=== PATIENT | female | born 1955 | race Caucasian/White ===

== ENCOUNTER 2024-01-09 15:07 | Emergency (ER) | payer MEDICARE, BC, SELFPAY ==
[2024-01-09] VITALS (21 sets, daily range): BP systolic 147–168; BP diastolic 70–91; PULSE 69–92; RESP 18; TEMP 37.1; O2SAT 95–99; BMI 32.9
--- NOTE | 2024-01-09 15:38 | XR_ITS ---
Patient: VIRGILIO ENGEL Facility:?[facility] RIS Patient ID:?[id number] Site Patient ID:?[id number]. Site :?[id number] Study:?XRay-Chest PORTABLE 1V-01/09/2024 3:52:36 PM Ordering Physician:FINA Final Report: INDICATION: Chest pain. Short of breath. TECHNIQUE: Chest 1 portable sitting view. COMPARISON: None. FINDINGS: No pneumothorax or pleural effusion. Lungs are clear. Cardiac and mediastinal contours are within normal limits. Upper abdomen and osseous structures as imaged show no acute abnormality. IMPRESSION: No evidence of acute cardiopulmonary disease. Dictated by Andrew Fischer MD @ 01/09/2024 4:27:36 PM Signed by:?Andrew Fischer MD @01/09/2024 4:27:36 PM (Electronic Signature)
--- NOTE | 2024-01-09 15:43 | ED.GENADULT ---
[facility] - General Adult General Date Seen: 01/09/24 Chief complaint: Chest Pain Stated complaint: Chest pain, short of breath Time Seen by Provider: 01/09/24 15:18 Source: patient, RN notes reviewed and old records reviewed Mode of arrival: ambulatory Limitations: no limitations History of Present Illness HPI narrative: Patient is a 68-year-old here with her for evaluation of near syncope associated with mild chest pressure. She says that she has had 3 episodes of feeling faint in the past day and half, these have been very brief, she estimates about 5 seconds, but significant enough that she has felt a she has had to grab onto something because she thought she might pass out. She has not actually fainted. She has had other episodes of lightheadedness which have been even shorter and less severe. She also notes over the past couple of months she has been having some mild chest pressure, no real pattern to that, she has not seen anybody for it. She says she has an upcoming appointment with her primary care doctor for an annual visit says she was just waiting until then. She says she was awakened with chest pressure overnight last night, she went and slept in the recliner, felt better went back to bed. This morning, she says she was helping a friend walter rutledge when she had another episode of this near syncope. She did note some very mild chest discomfort at that time as well. It is now resolved. She denies shortness of breath, nausea, vomiting, diarrhea, black or bloody stools. She has not had fevers or other upper respiratory symptoms. She denies unexpected weight loss or night sweats. She does note that she has felt fatigued for the past couple of months. She just feels like something is ?off?. She has a history of ?arrhythmia, she is unsure exactly what arrhythmia but she takes metoprolol. She has high blood pressure, high cholesterol. She does not smoke. She drinks occasionally. Her father side of the family had problems with heart failure but no early coronary artery disease. Mom of an aneurysm. She says that she did do a stress test a couple of years ago but it was stopped because of this arrhythmia. She wore a monitor for a couple of weeks, did not have an angiogram. No known history of coronary artery disease, mi, stents. She has had several colonoscopies which were unremarkable. Had a negative Cologuard a couple of months ago. Related Data Home Medications Medication Instructions Recorded Confirmed atorvastatin 20 mg tablet 20 mg PO DAILY 01/09/24 01/09/24 losartan 50 mg tablet 50 mg PO DAILY 01/09/24 01/09/24 metoprolol succinate 25 mg 25 mg PO DAILY 01/09/24 01/09/24 tablet,extended release 24 hr Allergies Allergy/AdvReac Type Severity Reaction Status Date / Time Sulfa (Sulfonamide Allergy Intermediate Verified 01/09/24 17:16 Antibiotics) Review of Systems Status of ROS: Reports: 10 or more systems reviewed and unremarkable except as noted in History and below [facility] Social History Smoking Status: Never smoker Do you use any of these nicotine containing products: None Second hand tobacco smoke exposure: No How often do you have a drink containing alcohol: monthly or less How many standard drinks containing alcohol do you have on a typical day: 1 or 2 How often do you have six or more drinks on one occasion: Never AUDIT-C Alcohol total score: 1 Non-prescribed substance use: denies use service: No Exam Narrative: Exam Narrative: Vital signs as noted above. In general, an alert, well-appearing patient. Head: Normocephalic, atraumatic. Eyes: Pupils are equal reactive. Extraocular movements are full. Conjunctivae are normal. ENT: Mucous membranes are moist. Throat is normal. Neck: Supple without lymphadenopathy. Heart: Regular rate and rhythm. No murmur or rub. Lungs: Clear bilaterally. No increased work of breathing, crackles or wheezes. Abdomen: Soft and nontender. No organomegaly. Extremities: Well perfused. No edema. No calf tenderness. Pulses intact. Neurologic: Patient is alert and oriented to person and place. Speech is fluent. Face is symmetric. Moves all extremities equally. Affect: Tearful, anxious. Skin: Warm and dry. Well perfused. Const: Vital Signs, click to edit/add: Vital Signs - 24 hr 01/09/24 15:20 01/09/24 15:21 01/09/24 15:22 Temperature Pulse Rate 84 87 84 Pulse Rate [Pulse Oximeter] Respiratory Rate Blood Pressure 163/87 H 168/78 H Blood Pressure [Ri ght Upper Arm] Pulse Oximetry 96 96 96 Oxygen Delivery Me thod 01/09/24 15:24 01/09/24 15:30 01/09/24 15:42 Temperature 98.8 F Pulse Rate 79 87 Pulse Rate [Pulse Oximeter] 92 Respiratory Rate 18 Blood Pressure 148/89 H Blood Pressure [Ri ght Upper Arm] 163/87 H Pulse Oximetry 95 97 96 Oxygen Delivery Me thod Room Air 01/09/24 16:00 01/09/24 16:02 01/09/24 16:22 Temperature Pulse Rate 75 79 77 Pulse Rate [Pulse Oximeter] Respiratory Rate Blood Pressure 150/77 H 147/72 H Blood Pressure [Ri ght Upper Arm] Pulse Oximetry 96 97 96 Oxygen Delivery Me thod 01/09/24 16:23 Temperature Pulse Rate Pulse Rate [Pulse Oximeter] Respiratory Rate Blood Pressure Blood Pressure [Ri ght Upper Arm] Pulse Oximetry 97 Oxygen Delivery Me thod Documenting provider has reviewed patient's vital signs: yes Course Course ED Course: Diagnostic considerations are broad at this time and include coronary artery disease/acute coronary syndrome, pulmonary embolism, pneumonia, other infection, metabolic derangement, among others. EKG done on arrival shows a normal sinus rhythm, ventricular rate of 90 beats per minute. No acute ST segment changes. Unremarkable T-waves. Labs and chest x-ray are pending. Chest x-ray by my review is negative, final radiology read is negative. Labs notable for normal white blood cell count of 7.9, hemoglobin of 13.4. D-dimer mildly elevated for age at 0.82, metabolic panel normal, creatinine 0.7, LFTs normal, CRP less than 0.5. BNP is 849, indeterminate. TSH is normal at 1.37 and initial point of care troponin was 0.02, repeat was 0.0202 hours. I did elect to do a CT scan of the chest given her mildly elevated D-dimer and symptoms over the past couple of months. By my review, there was no evidence of pulmonary embolism. Read as follows by Radiology:FINDINGS: Heart and vasculature: Contrast opacification of the pulmonary arterial tree is adequate. No sign of pulmonary embolism. Heart size is normal. Coronary artery calcifications. Thoracic aorta and pulmonary artery are normal in caliber. Lungs and pleura: No suspicious nodules or infiltrates. Scattered atelectasis. No pleural effusions, pleural thickening, or pneumothorax. Lymph nodes/mediastinum: No mediastinal, hilar, or axillary adenopathy. Chest wall: No masses. Upper abdomen: No acute or significant findings. Bones: Unremarkable for age. IMPRESSION: No pulmonary embolism. No focal consolidations. Coronary artery calcifications. T Patient feels well at this time, does not currently have chest pain. I have discussed with her that her evaluation today helps to rule out heart attack, but does not answer the question of whether not she may have coronary artery disease. To that end, I have recommended an outpatient stress test. Results should be sent to Dr. Deanna Thompson at [facility], patient should follow-up with her after her stress test to over results. Reviewed reasons to return such as severe or persistent pain, shortness of breath, vomiting, fainting, etcetera. Vital Signs Vital signs: Initial Vital Signs Pulse Rate 84 01/09/24 15:20 Blood Pressure 163/87 H 01/09/24 15:20 Blood Pressure Mean 112 H 01/09/24 15:20 Pulse Oximetry 96 01/09/24 15:20 Vital Signs Pulse Rate 84 01/09/24 15:20 Blood Pressure 163/87 H 01/09/24 15:20 Pulse Oximetry 96 01/09/24 15:20 Temperature 98.8 F 01/09/24 15:24 Pulse Rate 77 01/09/24 16:22 Respiratory Rate 18 01/09/24 15:24 Blood Pressure 147/72 H 01/09/24 16:22 Pulse Oximetry 97 01/09/24 16:23 Oxygen Delivery Method Room Air 01/09/24 15:24 Medical Decision Making Lab Data Labs: Lab Results 01/09/24 01/09/24 01/09/24 Range/Units 15:39 15:50 15:50 WBC 7.88 (4.50-11.00) K/uL RBC 4.49 (4.00-5.20) m/uL Hgb 13.4 (12.0-16.0) gm/dL Hct 40.2 (33.0-51.0) % MCV 90 (80-100) fL MCH 30 (26-34) pg MCHC 33 (32-36) gm/dL RDW Coeff of Jaqui 13.4 (11.5-15.5) % Plt Count 240 (140-440) K/uL Neut % (Auto) 74.1 H (42.0-72.0) % Lymph % (Auto) 17.4 L (20-44) % [place] % (Auto) 7.7 (0.0-11.0) % Eos % (Auto) 0.4 (0.0-7.0) % Baso % (Auto) 0.4 (0.0-3.0) % Neut # (Auto) 5.80 (1.7-7.0) K/uL Lymph # (Auto) 1.40 (0.90-2.90) K/uL [place] # (Auto) 0.60 (0.00-0.90) K/UL Eos # (Auto) 0.03 (0.00-0.50) K/uL Baso # (Auto) 0.03 (0.00-0.30) K/uL Abs Immat Gran (auto) 0.00 (0.00-0.30) K/uL Imm/Tot Granulo (auto) 0.0 % D-Dimer Quant (PE/DVT) 0.82 H (0.00-0.50) ug/ml Sodium 140 (135-149) mmol/L Potassium 4.0 (3.6-5.1) mmol/L Chloride 107 (96-114) mmol/L Carbon Dioxide 23 (20-32) mmol/L Anion Gap 10 (7-15) mEq/L BUN 21 (7-30) mg/dL Creatinine 0.7 (0.5-1.5) mg/dL Estimated Creat Clear 50.91 Estimated GFR 93 ml/min Glucose 89 (60-115) mg/dL Calcium 8.8 (8.4-10.6) mg/dL Total Bilirubin 0.9 Cancelled (0.1-1.5) mg/dL Direct Bilirubin 0.1 (0.0-0.5) mg/dL AST (12-35) U/L ALT (4-35) U/L Alkaline Phosphatase (40-150) U/L C-Reactive Protein (0.5-1.0) mg/dL NT-Pro-B Natriuret Pep pg/mL Total Protein (6.0-8.3) g/dL Albumin (3.3-5.0) g/dL TSH (0.270-4.200) uIU/mL POC Troponin I 0.02 (0.01-0.04) ng/ml 01/09/24 01/09/24 01/09/24 Range/Units 15:50 15:50 15:50 WBC (4.50-11.00) K/uL RBC (4.00-5.20) m/uL Hgb (12.0-16.0) gm/dL Hct (33.0-51.0) % MCV (80-100) fL MCH (26-34) pg MCHC (32-36) gm/dL RDW Coeff of Jaqui (11.5-15.5) % Plt Count (140-440) K/uL Neut % (Auto) (42.0-72.0) % Lymph % (Auto) (20-44) % [place] % (Auto) (0.0-11.0) % Eos % (Auto) (0.0-7.0) % Baso % (Auto) (0.0-3.0) % Neut # (Auto) (1.7-7.0) K/uL Lymph # (Auto) (0.90-2.90) K/uL [place] # (Auto) (0.00-0.90) K/UL Eos # (Auto) (0.00-0.50) K/uL Baso # (Auto) (0.00-0.30) K/uL Abs Immat Gran (auto) (0.00-0.30) K/uL Imm/Tot Granulo (auto) % D-Dimer Quant (PE/DVT) (0.00-0.50) ug/ml Sodium (135-149) mmol/L Potassium (3.6-5.1) mmol/L Chloride (96-114) mmol/L Carbon Dioxide (20-32) mmol/L Anion Gap (7-15) mEq/L BUN (7-30) mg/dL Creatinine (0.5-1.5) mg/dL Estimated Creat Clear Estimated GFR ml/min Glucose (60-115) mg/dL Calcium (8.4-10.6) mg/dL Total Bilirubin (0.1-1.5) mg/dL Direct Bilirubin Cancelled (0.0-0.5) mg/dL AST 25 Cancelled (12-35) U/L ALT 15 Cancelled (4-35) U/L Alkaline Phosphatase 78 (40-150) U/L C-Reactive Protein (0.5-1.0) mg/dL NT-Pro-B Natriuret Pep pg/mL Total Protein (6.0-8.3) g/dL Albumin (3.3-5.0) g/dL TSH (0.270-4.200) uIU/mL POC Troponin I (0.01-0.04) ng/ml 01/09/24 01/09/24 01/09/24 Range/Units 15:50 15:50 15:50 WBC (4.50-11.00) K/uL RBC (4.00-5.20) m/uL Hgb (12.0-16.0) gm/dL Hct (33.0-51.0) % MCV (80-100) fL MCH (26-34) pg MCHC (32-36) gm/dL RDW Coeff of Jaqui (11.5-15.5) % Plt Count (140-440) K/uL Neut % (Auto) (42.0-72.0) % Lymph % (Auto) (20-44) % [place] % (Auto) (0.0-11.0) % Eos % (Auto) (0.0-7.0) % Baso % (Auto) (0.0-3.0) % Neut # (Auto) (1.7-7.0) K/uL Lymph # (Auto) (0.90-2.90) K/uL [place] # (Auto) (0.00-0.90) K/UL Eos # (Auto) (0.00-0.50) K/uL Baso # (Auto) (0.00-0.30) K/uL Abs Immat Gran (auto) (0.00-0.30) K/uL Imm/Tot Granulo (auto) % D-Dimer Quant (PE/DVT) (0.00-0.50) ug/ml Sodium (135-149) mmol/L Potassium (3.6-5.1) mmol/L Chloride (96-114) mmol/L Carbon Dioxide (20-32) mmol/L Anion Gap (7-15) mEq/L BUN (7-30) mg/dL Creatinine (0.5-1.5) mg/dL Estimated Creat Clear Estimated GFR ml/min Glucose (60-115) mg/dL Calcium (8.4-10.6) mg/dL Total Bilirubin (0.1-1.5) mg/dL Direct Bilirubin (0.0-0.5) mg/dL AST (12-35) U/L ALT (4-35) U/L Alkaline Phosphatase Cancelled (40-150) U/L C-Reactive Protein < 0.5 L (0.5-1.0) mg/dL NT-Pro-B Natriuret Pep 849 Cancelled pg/mL Total Protein 7.6 Cancelled (6.0-8.3) g/dL Albumin 4.3 (3.3-5.0) g/dL TSH (0.270-4.200) uIU/mL POC Troponin I (0.01-0.04) ng/ml 01/09/24 01/09/24 01/09/24 Range/Units 15:50 15:50 17:47 WBC (4.50-11.00) K/uL RBC (4.00-5.20) m/uL Hgb (12.0-16.0) gm/dL Hct (33.0-51.0) % MCV (80-100) fL MCH (26-34) pg MCHC (32-36) gm/dL RDW Coeff of Ajqui (11.5-15.5) % Plt Count (140-440) K/uL Neut % (Auto) (42.0-72.0) % Lymph % (Auto) (20-44) % [place] % (Auto) (0.0-11.0) % Eos % (Auto) (0.0-7.0) % Baso % (Auto) (0.0-3.0) % Neut # (Auto) (1.7-7.0) K/uL Lymph # (Auto) (0.90-2.90) K/uL [place] # (Auto) (0.00-0.90) K/UL Eos # (Auto) (0.00-0.50) K/uL Baso # (Auto) (0.00-0.30) K/uL Abs Immat Gran (auto) (0.00-0.30) K/uL Imm/Tot Granulo (auto) % D-Dimer Quant (PE/DVT) (0.00-0.50) ug/ml Sodium (135-149) mmol/L Potassium (3.6-5.1) mmol/L Chloride (96-114) mmol/L Carbon Dioxide (20-32) mmol/L Anion Gap (7-15) mEq/L BUN (7-30) mg/dL Creatinine (0.5-1.5) mg/dL Estimated Creat Clear Estimated GFR ml/min Glucose (60-115) mg/dL Calcium (8.4-10.6) mg/dL Total Bilirubin (0.1-1.5) mg/dL Direct Bilirubin (0.0-0.5) mg/dL AST (12-35) U/L ALT (4-35) U/L Alkaline Phosphatase (40-150) U/L C-Reactive Protein (0.5-1.0) mg/dL NT-Pro-B Natriuret Pep pg/mL Total Protein (6.0-8.3) g/dL Albumin Cancelled (3.3-5.0) g/dL TSH 1.370 Cancelled (0.270-4.200) uIU/mL POC Troponin I 0.02 (0.01-0.04) ng/ml Discharge Plan Discharge Clinical Impression: Chest pain Patient Disposition: Home, Self-Care Condition: Stable Instructions: Chest Pain (DC) Additional Instructions: Someone should call you tomorrow to schedule a stress test in the near future. Please follow-up with Dr. Thompson following your stress test to go over results. If you have worsening symptoms at any time, significant chest pain, particularly if associated with other symptoms such as shortness of breath, nausea vomiting, fainting, or breaking out into a sweat, return to the emergency department. Prescriptions: No Action losartan 50 mg tablet 50 mg PO DAILY atorvastatin 20 mg tablet 20 mg PO DAILY metoprolol succinate 25 mg tablet extended release 24 hr 25 mg PO DAILY Follow Up/Referrals: Deanna Thompson PA-C [Primary Care Provider] - Stand Alone Forms: [employer] Info Instructions
[2024-01-09 16:08] LABS: Troponin, Point-of-Care* 0.02 ng/ml (0.01-0.04)
[2024-01-09 16:12] LABS: Basophils Absolute Auto 0.03 K/uL (0.00-0.30); Basophils Percent Auto 0.4 % (0.0-3.0); Eosinophils Absolute Auto 0.03 K/uL (0.00-0.50); Eosinophils Percent Auto 0.4 % (0.0-7.0); Hematocrit 40.2 % (33.0-51.0); Hemoglobin* 13.4 gm/dL (12.0-16.0); Lymphocytes Percent Auto 17.4 % (20-44); Mean Corpuscular HGB Conc 33 gm/dL (32-36); Mean Corpuscular Hemoglobin 30 pg (26-34); Mean Corpuscular Volume 90 fL (80-100); Monocytes Percent Auto 7.7 % (0.0-11.0); Neutrophils Percent Auto 74.1 % (42.0-72.0); Platelet Count* 240 K/uL (140-440); RDW Coefficient of Variation % 13.4 % (11.5-15.5); Red Blood Count 4.49 m/uL (4.00-5.20); White Blood Count* 7.88 K/uL (4.50-11.00)
[2024-01-09 16:21] LABS: Slide Review Reflex No
[2024-01-09 16:29] LABS: Albumin* 4.3 g/dL (3.3-5.0); Chloride* 107 mmol/L (96-114)
[2024-01-09 16:30] LABS: Sodium* 140 mmol/L (135-149)
[2024-01-09 16:32] LABS: Creatinine* 0.7 mg/dL (0.5-1.5); Est. Creatinine Clearance* 50.91; Estimated Glomerular Filt Rate 93 ml/min
[2024-01-09 16:33] LABS: Alanine Aminotransferase* 15 U/L (4-35); Alkaline Phosphatase* 78 U/L (40-150); Anion Gap 10 mEq/L (7-15); Aspartate Amino Transferase* 25 U/L (12-35); Bilirubin Direct* 0.1 mg/dL (0.0-0.5); Bilirubin Total* 0.9 mg/dL (0.1-1.5); Blood Urea Nitrogen* 21 mg/dL (7-30); Calcium* 8.8 mg/dL (8.4-10.6); Carbon Dioxide* 23 mmol/L (20-32); D Dimer Quantitative* 0.82 ug/ml (0.00-0.50); Glucose* 89 mg/dL (60-115); Total Protein* 7.6 g/dL (6.0-8.3)
[2024-01-09 16:45] LABS: C Reactive Protein* < 0.5 mg/dL (0.5-1.0); NT Pro B Type NatriureticPept* 849 pg/mL
--- NOTE | 2024-01-09 17:00 | CT_ITS ---
Patient: VIRGILIO ENGEL Facility:?[facility] RIS Patient ID:?[id number] Site Patient ID:?[id number]. Site :?[id number] Study:?CT-Chest W/ 95CC ISOVUE 370 PE PROTOCOL-01/09/2024 5:37:21 PM Ordering Physician:FINA Final Report: INDICATION: Chest pain. TECHNIQUE: CT chest PE was acquired with 100 cc Omnipaque 350 IV contrast. COMPARISON: None. FINDINGS: Heart and vasculature: Contrast opacification of the pulmonary arterial tree is adequate. No sign of pulmonary embolism. Heart size is normal. Coronary artery calcifications. Thoracic aorta and pulmonary artery are normal in caliber. Lungs and pleura: No suspicious nodules or infiltrates. Scattered atelectasis. No pleural effusions, pleural thickening, or pneumothorax. Lymph nodes/mediastinum: No mediastinal, hilar, or axillary adenopathy. Chest wall: No masses. Upper abdomen: No acute or significant findings. Bones: Unremarkable for age. IMPRESSION: No pulmonary embolism. No focal consolidations. Coronary artery calcifications. Please note that all CT scans at this facility use dose modulation, iterative reconstruction, and/or weight-based dosing when appropriate to reduce radiation dose to as low as reasonably achievable. Dictated by Wilmer Beckham MD @ 01/09/2024 6:29:44 PM Signed by:?Wilmer Beckham MD @01/09/2024 6:29:44 PM (Electronic Signature)
[2024-01-09 18:11] LABS: Troponin, Point-of-Care* 0.02 ng/ml (0.01-0.04)
== END 2024-01-09 18:57 | disposition home or self-care (01) ==
PROVIDERS: Emergency Provider Emergency Medicine; PCP Physician Assistant
DX: R07.9 Chest pain, unspecified (principal)
CPT/HCPCS: 36415; 71045; 71275; 80048; 80076; 83880; 84443; 84484; 85025; 85379; 86140; 93005; 94761; 99284; 99285; Q9967

== ENCOUNTER 2024-01-11 12:55 | Outpatient (CLI) | payer MEDICARE, BC, SELFPAY ==
--- NOTE | 2024-01-11 13:35 | W.PM.STED ---
Stress Test Note Date Date Seen: 01/11/24 Date of test: 01/11/24 Providers Referring provider: Deanna Rivers Primary care provider: Deanna Thompson Stress test physician: Kim Thomson Stress Test Note Stress test ordered: Stress Echo Indication for test: Chest pain Stress test medicine: None Results discussion: Resting EKG: Sinus rhythm, 77 beats per minute. Low-voltage QRS in V2. Resting blood pressure: 160/83 Stress test: Patient was consented on stress test ordered. She was exercised on the treadmill following standard Jey protocol. Patient was only able to exercise to 3 minutes 4 seconds, requiring to stop due to dyspnea. She achieved 4.6 Mets at this level of exercise. Of note she did reach over her target heart rate, she had a maximum heart rate of 167 beats per minute which was 130% of a calculated target heart rate of 128. She had a rate pressure product of 19,800. Her last blood pressure during exercise was 120/70 but likely reflects in accurate blood pressure she did have occasional PVC but otherwise no arrhythmia. There was some sinus arrhythmia in recovery. There was no definitive ischemia noted. Impression: Subjectively negative for chest pain but significant dyspnea, poor exercise tolerance and objectively negative for ischemia. Follow up suggested: Patient will contact her primary care provider Dr. Thompson through the portal. We discussed letting her provider know that a stress test had been done and to look for the results. Upon further discussion with Dr. Rivers after the patient left, patient had reported to Dr. Rivers that she had not had an angiogram which is different than what the armorer technician found in her [facility] records. She had had a normal angiogram in 2021. Patient did report to me that she had done a 2 week ZIO patch monitor before. It is possible that this may need to be reconsidered. We will have her contact her primary and follow-up. Patient is discharged from here in stable condition.
[2024-01-11 14:49] VITALS: BP 166/87; PULSE 86
== END 2024-01-11 12:56 | disposition home or self-care (01) ==
LOC: STRESS 12:56
PROVIDERS: PCP Physician Assistant; Visit Provider Family Medicine
DX: R07.89 Other chest pain (principal)
CPT/HCPCS: 93016; 93325; 93351